=== PATIENT | male | born 1965 | race Caucasian/White ===

== ENCOUNTER 2023-07-20 15:55 | Emergency (ER) | payer OTHER ==
[~2023-07-20] VITALS: Ht 170.2 cm; Wt 83.9 kg
[2023-07-20] MEDS ORDERED: SULF1TAB48 PO (17:24)
[2023-07-20] MEDS ORDERED: CEPH500C2 PO (17:24)
[2023-07-20] MEDS ORDERED: SILV20CR13 TP (17:24)
[2023-07-20] MEDS ORDERED: SILVER SULFADIAZINE CREAM 25 GM TUBE ONE (17:28)
[2023-07-20] MEDS ORDERED: CEPHALEXIN MONOHYDRATE 500 MG CAPSULE PO ONE (17:28)
[2023-07-20] MEDS ORDERED: SULFAMETH/TRIMETH 800/160 MG 1 UDTAB TABLET ONE (17:29)
[2023-07-20] MEDS: SILVER SULFADIAZINE CREAM 25 GM TUBE TP ONE (17:33)
[2023-07-20] MEDS: SULFAMETH/TRIMETH 800/160 MG 1 UDTAB TABLET PO ONE (17:33)
[2023-07-20] MEDS: CEPHALEXIN MONOHYDRATE 500 MG CAPSULE PO ONE (17:33)
[2023-07-20 18:10] VITALS: BP 118/69; TEMP 98.9; O2SAT 98
== END 2023-07-20 18:11 | disposition home or self-care (01) ==
LOC: ER 16:37
DX: L03.114 Cellulitis of left upper limb (principal); L02.414 Cutaneous abscess of left upper limb